=== PATIENT | male | born 1990 | race Caucasian/White ===

== ENCOUNTER 2020-01-20 19:57 | Emergency (ER) | payer SELFPAY ==
[~2020-01-20] VITALS: Ht 175.3 cm; Wt 90.9 kg
[2020-01-20 19:59] VITALS: BP 151/88
[2020-01-20] MEDS ORDERED: OMEP20 PO (20:01)
== END 2020-01-20 20:27 | disposition left against medical advice (07) ==
LOC: EMS 20:03
DX: R20.0 Anesthesia of skin (principal); Z53.21 Procedure and treatment not carried out due to patient leaving prior to being seen by health care provider

== ENCOUNTER 2020-05-19 10:37 | Emergency (ER) | payer MEDICAID ==
[~2020-05-19] VITALS: Ht 172.7 cm; Wt 109.1 kg
[~2020-05-19 10:37] MED LIST: OMEP20 PO
[2020-05-19 12:05] VITALS: BP 127/90
== END 2020-05-19 12:11 | disposition home or self-care (01) ==
LOC: EMS 11:14
DX: S82.832A Other fracture of upper and lower end of left fibula, initial encounter for closed fracture (principal); F17.210 Nicotine dependence, cigarettes, uncomplicated; F14.90 Cocaine use, unspecified, uncomplicated; W01.0XXA Fall on same level from slipping, tripping and stumbling without subsequent striking against object, initial encounter; Y93.89 Activity, other specified; Y92.89 Other specified places as the place of occurrence of the external cause; Y99.8 Other external cause status
CPT/HCPCS: 29515

== ENCOUNTER 2020-11-15 23:22 | Emergency (ER) | payer SELFPAY ==
[~2020-11-15] VITALS: Ht 170.2 cm; Wt 100.0 kg
[2020-11-15 23:33] VITALS: BP 151/101
== END 2020-11-15 23:50 | disposition left against medical advice (07) ==
LOC: EMS 23:22
DX: I10 Essential (primary) hypertension (principal); Z53.21 Procedure and treatment not carried out due to patient leaving prior to being seen by health care provider

== ENCOUNTER 2021-08-28 23:14 | Emergency (ER) | payer SELFPAY ==
[~2021-08-28] VITALS: Ht 170.2 cm; Wt 95.5 kg
[2021-08-28 23:18] VITALS: BP 152/90
== END 2021-08-29 | disposition left against medical advice (07) ==
LOC: EMS 23:14
DX: I10 Essential (primary) hypertension (principal); E11.65 Type 2 diabetes mellitus with hyperglycemia; Z53.21 Procedure and treatment not carried out due to patient leaving prior to being seen by health care provider

== ENCOUNTER 2021-09-10 13:03 | Emergency (ER) | payer MEDICAID ==
[~2021-09-10] VITALS: Ht 175.3 cm; Wt 95.5 kg
[2021-09-10] MEDS: SODIUM CHLORIDE 0.9% 1,000 ML IV ONE (14:36)
[2021-09-10] MEDS: LORazepam 2 MG/ML VIAL IVP ONE (14:36)
[2021-09-10 16:11] VITALS: BP 129/82
== END 2021-09-10 16:16 | disposition home or self-care (01) ==
LOC: EMS 13:06
DX: R00.0 Tachycardia, unspecified (principal); F15.10 Other stimulant abuse, uncomplicated; R03.0 Elevated blood-pressure reading, without diagnosis of hypertension; F41.9 Anxiety disorder, unspecified; F17.210 Nicotine dependence, cigarettes, uncomplicated
CPT/HCPCS: 93005; 96361; 96374; 99284; J2060; J7030